=== PATIENT | male | born 1955 | race Caucasian/White ===

== ENCOUNTER 2017-08-13 18:14 | Emergency (ER) | payer MEDICARE, OTHER ==
[2017-08-13] MEDS ORDERED: TETRACAINE HCL 0.5% OPHTH SOLN 4ML BOTTLE ONE (18:45)
--- NOTE | 2017-08-13 19:17 | ED Physician Chart ---
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 He has left eye pain. Allergies:: Allergies Allergy/AdvReac Type Severity Reaction Status Date / Time No Known Allergies Allergy Verified 08/13/17 18:27 Vitals:: Vital Signs - 8 hr 08/13/17 18:27 Temp 98.1 F HR 75 RR 16 BP 151/101 O2 Sat % 99 Historian:: Patient Review:: Nurse's Note Reviewed ED Review of Systems - Review of Systems General/Constitutional: No fever, No chills, No weight loss, No weakness, No diaphoresis, No edema, No loss of appetite Skin: No skin lesions, No rash, No bruising Head: No headache, No light-headedness Eyes: Pain, No pain, No diplopia ENT: No earache, No nasal drainage, No sore throat, No tinnitus Neck: No neck pain, No swelling, No thyromegaly, No stiffness, No mass noted Cardio Vascular: No chest pain, No palpitations, No PND, No orthopnea, No edema Pulmonary: No SOB, No cough, No sputum, No wheezing GI: No nausea, No vomiting, No diarrhea, No pain, No melena, No hematochezia, No constipation, No hematemesis G/U: No dysuria, No frequency, No hematuria Musculoskeletal: No bone or joint pain, No back pain, No muscle pain Endocrine: No polyuria, No polydipsia Psychiatric: No prior psych history, No depression, No anxiety, No suicidal ideation Hematopoietic: No bruising, No lymphadenopathy Allergic/Immuno: No urticaria, No angioedema Neurological: No syncope, No focal symptoms, No weakness, No paresthesia, No headache, No seizure, No dizziness, No confusion, No vertigo ED Past Medical History - Past Medical History Past Medical History: HTN Family History: None Social History: Non Smoker, Alcohol, Other (occasional alcohol) Surgical History: other (left knee replacement; metal plates in both wrists for fractures) Psychiatricy History: None Medication: Reviewed Family Medical History - Family Member Mother History Unknown: Yes ED Physical Exam - Physical Examination General/Constitutional: Awake, Well-developed, well-nourished, Alert, No distress, GCS 15, Non-toxic appearing, Ambulatory Other Gen/Cons comments:: Visual acuity right eye 20/30; visual acuity left eye 20/100 Head: Atraumatic Other Eyes comments:: Eyes: Conjunctiva left eye 3 out of 4 injected; pupils round with right pupil about 1/2 mm larger than left. Left eye: Upper lid everted and lower lid retracted and no foreign body seen; direct visualization revealed a probable foreign body or corneal ulcer at 9:00. Slit lamp visualization revealed a dark brown metallic foreign body and 9:00 Skin: Nl inspection, No rash, No skin lesions, No ecchymosis, Well hydrated, No lymphadenopathy ENMT: External ears, nose nl, Nasal exam nl, Lips, teeth, gums nl Neck: Nontender, Full ROM w/o pain, No JVD, No nuchal rigidity, No bruit, No mass, No stridor Respiratory: Nl effort/Exclusion, Clear to Auscultation, No Wheeze/Rhonchi/Rales Cardio Vascular: RRR, No murmur, gallop, rubs, NL S1 S2 GI: No tenderness/rebounding/guarding, No organomegaly, No hernia, Normal BS's, Nondistended, No mass/bruits, No McBurney tenderness : No CVA tenderness Extremities: No tenderness or effusion, Full ROM, normal strength in all extremities, No edema, Normal digits & nails Neuro/Psych: Alert/oriented, DTR's symmetric, Normal sensory exam, Normal motor strength, Judgement/insight normal, Mood normal, Normal gait, No focal deficits Misc: Normal back, No paraspinal tenderness ED Assessment - Procedures Procedures:: Several drops of Antoni ophthalmic solution used in the left eye; with slit lamp visualization an Algerbrush II was used to remove the corneal foreign body and the rust ring. ED Septic Shock - . Is Septic Shock (SBP<90, OR Lactate>4 mmol\L) present?: No - <6hrs of presentation: Vital Signs: Vital Signs - 8 hr 08/13/17 18:27 Temp 98.1 F HR 75 RR 16 BP 151/101 O2 Sat % 99 ED Reassessment (Disposition) - Reassessment Reassessment Condition:: Improved - Diagnosis Diagnosis:: Corneal foreign body left eye - Aftercare/Follow up Instructions Medication Prescribed:: See the template percent ophthalmic solution to apply 2 drops left eye every 2 hours while awake - Patient Disposition Discharge/Transfer:: Home Condition at Disposition:: Stable, Improved
== END 2017-08-13 19:40 | disposition home or self-care (01) ==
LOC: ER 18:14
DX: T15.02XA Foreign body in cornea, left eye, initial encounter (principal); I10 Essential (primary) hypertension; X58.XXXA Exposure to other specified factors, initial encounter; Y93.89 Activity, other specified; Y92.89 Other specified places as the place of occurrence of the external cause; Y99.8 Other external cause status
CPT/HCPCS: 65222; Z7502

== ENCOUNTER 2017-12-18 17:59 | Emergency (ER) | payer MEDICARE, OTHER ==
--- NOTE | 2017-12-18 18:45 | ED Physician Chart ---
ED Chief Complaint/HPI - Patient Information Date Seen:: 12/18/17 Time Seen:: 18:20 Chief Complaint:: scalp laceration History of Present Illness:: Patient's had struck trailer hitch. No loss of consciousness but patient felt momentarily dizzy. No neck pain. Laceration bled excessively. Patient's last tetanus booster was about 2 years ago. Allergies:: Allergies Allergy/AdvReac Type Severity Reaction Status Date / Time No Known Allergies Allergy Verified 12/18/17 18:07 Vitals:: Vital Signs - 8 hr 12/18/17 12/18/17 18:17 18:34 Temp 98.5 F 98.5 F HR 82 82 RR 18 18 BP 151/97 151/97 O2 Sat % 97 97 Historian:: Patient Review:: Nurse's Note Reviewed ED Review of Systems - Review of Systems General/Constitutional: No fever, No chills Skin: Skin lesions Head: Light headed Eyes: No loss of vision ENT: No earache Neck: No neck pain, No swelling Cardio Vascular: No chest pain, No palpitations Pulmonary: No SOB GI: No nausea, No vomiting, No diarrhea G/U: No dysuria Musculoskeletal: No bone or joint pain Endocrine: No polyuria Psychiatric: No prior psych history Hematopoietic: No bruising Allergic/Immuno: No urticaria Neurological: No syncope, No focal symptoms ED Past Medical History - Past Medical History Past Medical History: No significant medical hx Family History: Cancer Social History: Smoker, Alcohol, Other (smokes about one half pack of cigarettes a day and drinks alcohol occasionally) Surgical History: other (both wrists for fracture and left knee replacement) Psychiatricy History: None Medication: None Family Medical History - Family Member Mother History Unknown: Yes Age: 73 Ethnicity: Living Status: Hx Family Cancer: Yes (Gastric cancer) ED Physical Exam - Physical Examination General/Constitutional: Awake, Well-developed, well-nourished, Alert, No distress, GCS 15, Non-toxic appearing, Ambulatory Other Head comments:: 2 Centimeter vertex scalp laceration Eyes: Lids, conjuctiva normal, PERRL, EOMI Skin: Nl inspection, No rash, No skin lesions, No ecchymosis, Well hydrated, No lymphadenopathy ENMT: External ears, nose nl, Nasal exam nl, Lips, teeth, gums nl Neck: Nontender, Full ROM w/o pain, No JVD, No nuchal rigidity, No bruit, No mass, No stridor Respiratory: Nl effort/Exclusion, Clear to Auscultation, No Wheeze/Rhonchi/Rales Cardio Vascular: RRR, No murmur, gallop, rubs, NL S1 S2 GI: No tenderness/rebounding/guarding, No organomegaly, No hernia, Normal BS's, Nondistended, No mass/bruits, No McBurney tenderness : No CVA tenderness Extremities: No tenderness or effusion, Full ROM, normal strength in all extremities, No edema, Normal digits & nails Neuro/Psych: Alert/oriented, DTR's symmetric, Normal sensory exam, Normal motor strength, Judgement/insight normal, Mood normal, Normal gait, No focal deficits Misc: Normal back, No paraspinal tenderness ED Assessment Location:: Skin cleansed with Betadine swabs; 2% Xylocaine with epinephrine used for local anesthesia; laceration irrigated with normal saline; 3.0 .chromic interrupted sutures used to close the laceration ED Septic Shock - . Is Septic Shock (SBP<90, OR Lactate>4 mmol\L) present?: No - <6hrs of presentation: Vital Signs: Vital Signs - 8 hr 12/18/17 12/18/17 18:17 18:34 Temp 98.5 F 98.5 F HR 82 82 RR 18 18 BP 151/97 151/97 O2 Sat % 97 97 ED Reassessment (Disposition) - Reassessment Reassessment Condition:: Improved - Diagnosis Diagnosis:: 2 Centimeter vertex scalp laceration - Aftercare/Follow up Instructions Aftercare/Follow-Up Instructions:: Refer to Discharge Instructions - Patient Disposition Discharge/Transfer:: Home Condition at Disposition:: Stable, Improved
== END 2017-12-18 18:50 | disposition home or self-care (01) ==
LOC: ER 17:59
DX: S01.01XA Laceration without foreign body of scalp, initial encounter (principal); F17.210 Nicotine dependence, cigarettes, uncomplicated; W22.8XXA Striking against or struck by other objects, initial encounter; Y93.89 Activity, other specified; Y92.89 Other specified places as the place of occurrence of the external cause; Y99.8 Other external cause status
CPT/HCPCS: 12001; Z7502